=== PATIENT | male | born 1985 | race Two or more races ===

== ENCOUNTER → 2022-09-01 | Day surgery (SDC) | payer OTHER ==
[~2022-09-01] VITALS: Ht 172.7 cm; Wt 145.1 kg
[~2022-09-01] MED LIST: ASCO500T11 PO; ASPI-498 OR; BUPIVACAINE 0.5% P/F INJ 10 ML VIAL ONE; CHOL20004 PO; CRAN125T PO; EPINEPHrine HCL 1 MG/1 ML AMP ONE; GLYCOPYRROLATE 0.2 MG/ML 1ML VIAL ONE; HYDR-4072 PO; HYDROmorphone HCL 2 MG/ML VL/or syr IV PRN; LIDOCAINE 2% (LOCAL ANESTH.) PF 5ml SDV ONE; MELA5TAB10 PO; MIDAZOLAM HCL 2MG/2ML 2ml VIAL (1mg/ml) ONE; MISC1LOZ3 MT; NEOSTIGMINE 1 MG/ML INJ (10mg/10ML VIAL) ONE; ONDANSETRON HCL 4 MG/2 ML VIAL IV PRN; ONDANSETRON HCL 4 MG/2 ML VIAL ONE; PROPOFOL 10 MG/ML 20 ML IV ONE; ROCURONIUM 10MG/ML 10ML VIAL IV ONE; SERT100T PO; ZINC100T5 PO; ceFAZolin 1GM/50ML 100 ML IV ONE; fentaNYL CITRATE 5 ML ONE
[2022-09-01 09:50] VITALS: BP 124/69
== END | disposition home or self-care (01) ==
LOC: SUR 06:08
PROVIDERS: ATTEND Orthopaedic Surgery Sports Medicine
DX: S83.242A Other tear of medial meniscus, current injury, left knee, initial encounter (principal); M23.42 Loose body in knee, left knee; M94.262 Chondromalacia, left knee; X58.XXXA Exposure to other specified factors, initial encounter; Y93.89 Activity, other specified; Y92.89 Other specified places as the place of occurrence of the external cause; Y99.8 Other external cause status; Z20.822 Contact with and (suspected) exposure to COVID-19
CPT/HCPCS: 0232T; 29879; 29881; C1713; C1762; J0171; J0690; J2001; J2250; J2405; J2704; J3010; J3490; U0003